=== PATIENT | female | born 1970 | race Caucasian/White ===

== ENCOUNTER 2016-11-21 13:29 | Emergency (ER) | payer SELFPAY ==
[~2016-11-21 13:29] MED LIST: HYDR25SU23 PR
== END 2016-11-21 13:43 | disposition left against medical advice (07) ==
LOC: E/R 13:29
DX: Z53.21 Procedure and treatment not carried out due to patient leaving prior to being seen by health care provider (principal)

== ENCOUNTER 2016-11-23 23:48 | Emergency (ER) | payer BC ==
[~2016-11-23] VITALS: Ht 162.6 cm; Wt 89.0 kg
[2016-11-23 23:53] VITALS: Ht 162.6 cm; Wt 89.0 kg
[2016-11-24 01:33] LABS: ADD SCAN DIFF NO
[2016-11-24 01:34] LABS: BASOPHILS % 0.4 % (0.0-2.0); EOSINOPHILS # 0.4 10^3/ul (0.0-0.5); EOSINOPHILS % 4.5 % (0.0-7.0); HEMOGLOBIN 10.2 g/dl (12.0-16.0); LYMPHOCYTES % 38.8 % (15.0-51.0); MEAN CORPUSCULAR HEMOGLOBIN 26.4 pg (29.0-33.0); MEAN CORPUSCULAR HGB CONC 31.9 g/dl (32.0-37.0); MEAN CORPUSCULAR VOLUME 82.9 fl (82.0-101.0); MEAN PLATELET VOLUME 9.6 fl (7.4-10.4); MONOCYTE # 0.6 10^3/ul (0.3-0.9); MONOCYTES % 7.4 % (0.0-11.0); NEUTROPHIL # 3.8 10^3/ul (1.6-7.5); NEUTROPHILS % 48.8 % (39.0-77.0); PLATELET COUNT 319 10^3/UL (140-415); RED BLOOD COUNT 3.86 10^6/ul (4.20-5.40); RED CELL DISTRIBUTION WIDTH 16.3 % (11.5-14.5); WHITE BLOOD COUNT 7.8 10^3/ul (4.8-10.8)
[2016-11-24 01:44] LABS: INR 0.89; PT RATIO 0.9
[2016-11-24 01:45] LABS: PARTIAL THROMBOPLASTIN TIME 26.8 Sec (25.0-35.0)
[2016-11-24 01:56] LABS: POTASSIUM 4.3 mmol/L (3.5-5.1)
[2016-11-24 01:59] LABS: CREATININE 0.61 mg/dl (0.44-1.00)
[2016-11-24 02:00] LABS: CALCIUM 8.7 mg/dl (8.4-10.2)
[2016-11-24 02:27] LABS: ADD UMIC YES; URINE BILIRUBIN (Dip) NEGATIVE (NEGATIVE); URINE BLOOD (Dip) 3+ (NEGATIVE); URINE COLOR RED (YELLOW); URINE GLUCOSE (Dip) NEGATIVE (NEGATIVE); URINE KETONES (Dip) TRACE (NEGATIVE); URINE LEUKOCYTE ESTERASE (Dip) NEGATIVE (NEGATIVE); URINE NITRITE (Dip) NEGATIVE (NEGATIVE); URINE TOTAL PROTEIN (Dip) 2+ (NEGATIVE); URINE UROBILINOGEN (Dip) 1.0 E.U./dL (0.1-1.0)
[2016-11-24 02:51] LABS: URINE RBCS >200 /HPF (0)
[2016-11-24 02:52] LABS: BACTERIA,URINE FEW; SQUAMOUS EPITHELIAL CELL,UR MODERATE
--- NOTE | 2016-11-24 03:10 | RADRPT ---
PROCEDURE: US Pelvis CLINICAL INDICATION: Vaginal bleeding. TECHNIQUE: Sonographic evaluation of the pelvis was performed utilizing both transabdominal and tr ansvaginal technique. Images were reviewed on the high-resolution PACS workstation. COMPARISON: 07/03/2016 FINDINGS: Uterus is 7.7 x 4.7 x 5.4 cm.. The endometrium is mildly thickened measuring 14 mm in diameter. Th ere is a 1.2 x 0.9 cm probable fibroid in the posterior body of the uterus. Cervical Nabothian cyst s are present. The right ovary measures 3 x 1.9 x 1 point a cm. The left ovary measures 3.6 x 2.9 x 3.4 cm. There is a 13 mm simple right ovarian cyst. There is an 8 mm right paraovarian simple cyst. There is a 3 cm simple cyst in the left ovary. Ovaries are otherwise unremarkable.. Color doppler vascular malvin w is demonstrated to both ovaries. There are no adnexal masses. There is no free fluid in the pel vis. IMPRESSION: 1. Nonspecific thickened endometrium. 2. Cervical Nabothian cyst. 3. Bilateral ovarian simple cysts, largest left ovary 3 cm in diameter. RPTAT: HMVK .Aren Leggett MD, Date Time Electronically viewed and signed by .Aren Leggett MD, on 11/24/2016 03:09 .K/
[2016-11-24] MEDS ORDERED: MEDR5TAB PO (03:47)
--- NOTE | 2016-11-24 03:52 | ERD ---
ER Documentation Chief Complaint Date/Time DATE: 11/24/16 TIME: 03:50 Chief Complaint vaginal bleeding since november 01, 2016 HPI 46-year-old female otherwise healthy comes in with vaginal bleeding since November 01 with her last menstrual period. Patient states that she was up to 6-7 pads a day. She was seen by her primary care doctor Dr. Sneed. She states that she will follow-up with her on Saturday to get a referral to see a gamemaster. She denies any dizziness, chest pain or shortness of breath. She states that she has had diffuse pelvic pain associated with this. ROS All systems reviewed and are negative except as per history of present illness. Medications Home Meds Active Scripts Medroxyprogesterone Acetate* (Provera*) 5 Mg Tablet, 5 MG PO DAILY for 10 Days, TAB Prov:АЛЕКСАНДР GASCA PA-C 11/24/16 Hydrocortisone Acetate (Anusol-Hc) 25 Mg Supp.rect, 1 SUPP [place] QHS Y for HEMORROID PAIN/ITCHING, #12 SUPP.RECT Prov:THELMA DESHPANDE DO 07/03/16 Allergies Allergies: Coded Allergies: No Known Drug Allergies (Verified Allergy, Mild, 07/03/16) PMhx/Soc History of Surgery: Yes (CHOLECYSTECTOMY; D AND C) Anesthesia Reaction: No Hx Neurological Disorder: No Hx Respiratory Disorders: No Hx Cardiac Disorders: No Hx Psychiatric Problems: No Hx Miscellaneous Medical Probl: Yes (GERD) Hx Alcohol Use: No Hx Substance Use: No Hx Tobacco Use: No Smoking Status: Never smoker Physical Exam Vitals Vital Signs Date Time Temp Pulse Resp B/P Pulse Ox O2 Delivery O2 Flow Rate FiO2 11/23/16 23:53 97.8 70 20 124/70 98 Physical Exam General: Well-developed, well-nourished. The patient appears in no acute distress. HEENT: Head is normocephalic, atraumatic. No scleral icterus. Neck: Supple. Nontender. Lungs: Clear to auscultation. Normal air movement. Heart: Regular rate and rhythm. S1 and S2 are normal. No murmurs, gallops, or rubs. Abdomen: Soft, nontender, nondistended. Bowel sounds are normoactive. : Cervix was visualized and closed, no masses. There is scant bleeding behind the cervix, small amount of clotting as well. Extremities: No clubbing or cyanosis. Normal pulses. Moving extremities x 4. No weakness. Neurologic: Alert and oriented 3. No focal deficits. Skin: Normal turgor. No rash or lesions. Result Diagram: 11/24/1612211/24/163 Results 24 hrs Laboratory Tests Test 11/24/16 01:23 White Blood Count 7.810^3/ul Red Blood Count 3.8610^6/ul Hemoglobin 10.2g/dl Hematocrit 32.0% Mean Corpuscular Volume 82.9fl Mean Corpuscular Hemoglobin 26.4pg Mean Corpuscular Hemoglobin Concent 31.9g/dl Red Cell Distribution Width 16.3% Platelet Count 28493^3/UL Mean Platelet Volume 9.6fl Neutrophils % 48.8% Lymphocytes % 38.8% Monocytes % 7.4% Eosinophils % 4.5% Basophils % 0.4% Nucleated Red Blood Cells % 0.0/100WBC Neutrophils # 3.810^3/ul Lymphocytes # 3.010^3/ul Monocytes # 0.610^3/ul Eosinophils # 0.410^3/ul Basophils # 0.010^3/ul Nucleated Red Blood Cells # 0.010^3/ul Prothrombin Time 12.0Sec Prothrombin Time Ratio 0.9 INR International Normalized Ratio 0.89 Activated Partial Thromboplast Time 26.8Sec Urine Color RED Urine Clarity OTHER Urine pH 7.5 Urine Specific [place] 1.015 Urine Ketones TRACE Urine Nitrite NEGATIVE Urine Bilirubin NEGATIVE Urine Urobilinogen 1.0 E.U./dL Urine Leukocyte Esterase NEGATIVE Urine Microscopic RBC >200/HPF Urine Microscopic WBC 0-2/HPF Urine Squamous Epithelial Cells MODERATE Urine Bacteria FEW Urine Hemoglobin 3+ Urine Glucose NEGATIVE% Urine Total Protein 2+ Sodium Level 142mmol/L Potassium Level 4.3mmol/L Chloride Level 103mmol/L Carbon Dioxide Level 28mmol/L Anion Gap 15 Blood Urea Nitrogen 11mg/dl Creatinine 0.61mg/dl Glucose Level 90mg/dl Calcium Level 8.7mg/dl PROCEDURE: US Pelvis CLINICAL INDICATION: Vaginal bleeding. TECHNIQUE: Sonographic evaluation of the pelvis was performed utilizing both transabdominal and transvaginal technique. Images were reviewed on the high- resolution PACS workstation. COMPARISON: 07/03/2016 FINDINGS: Uterus is 7.7 x 4.7 x 5.4 cm.. The endometrium is mildly thickened measuring 14 mm in diameter. There is a 1.2 x 0.9 cm probable fibroid in the posterior body of the uterus. Cervical Nabothian cysts are present. The right ovary measures 3 x 1.9 x 1 point a cm. The left ovary measures 3.6 x 2.9 x 3.4 cm. There is a 13 mm simple right ovarian cyst. There is an 8 mm right paraovarian simple cyst. There is a 3 cm simple cyst in the left ovary. Ovaries are otherwise unremarkable.. Color doppler vascular flow is demonstrated to both ovaries. There are no adnexal masses. There is no free fluid in the pelvis. IMPRESSION: 1. Nonspecific thickened endometrium. 2. Cervical Nabothian cyst. 3. Bilateral ovarian simple cysts, largest left ovary 3 cm in diameter. RPTAT: HMVK .Aren Leggett MD, MD Date Time Electronically viewed and signed by .Aren Leggett MD, MD on 11/24/2016 03:09 .K/ Procedures/MDM 46-year-old female comes in with dysfunctional uterine bleeding. Differentials include ovarian mass, torsion, endometriosis, endometrial cancer, and among others. Patient expressed her concern for malignancy, I advised patient that we will be putting her on a short course of hormone, and she needs to follow-up with [facility]. If they feel that they need further evaluation including biopsy, I will be up to the gamemaster. She is hemodynamically stable, there is no tachycardia, H&H is stable. This was all discussed at length with the patient. She is to follow-up with her PCP on Saturday for a referral. Departure Diagnosis: Primary Impression: Vaginal bleeding Condition: Good Patient Instructions: Dysfunctional Uterine Bleeding, Ovarian Cyst Referrals: ARACELI SNEED MD (PCP) [facility] [place] [id number] [facility] [address] [place] [address] OFFICE FAX CESAR KAY [address] [place] [address] [address]. HADLEY ANTHONY [address] [place] [address] [address] [facility] [address], [address], [place] [address] [address] [facility] [facility] [address] [facility], [place] [address] [facility] [address] [place] [address] [facility] [address] [address] [facility] [address] [place] [address] DR RAPP, YVAN [address] [facility]. [address], [place] [address] [address] MENDEZ, [facility] [address] [place] [address] Additional Instructions: Patient was advised to follow-up with [facility] within the next week. If they were to develop any worsening symptoms sooner, including heavy vaginal bleeding or pelvic pain, they are to return to the ER for further evaluation. АЛЕКСАНДР GASCA PA-C Nov 24, 2016 03:52
[2016-11-24] MEDS ORDERED: FER325 PO (03:53)
[2016-11-24 03:55] VITALS: PULSE 78; RESP 20; TEMP 98
== END 2016-11-24 03:56 | disposition home or self-care (01) ==
LOC: FTE 23:48
DX: N93.9 Abnormal uterine and vaginal bleeding, unspecified (principal); R10.2 Pelvic and perineal pain
CPT/HCPCS: 76830; 76856; 80048; 81001; 85025; 85610; 85730; Z7502; 81003

== ENCOUNTER 2019-02-20 12:13 | Day surgery (SDC) | payer BC ==
[~2019-02-20] VITALS: Ht 162.6 cm; Wt 84.4 kg
[~2019-02-20 12:13] MED LIST changes: +FER325 PO; +MEDR5TAB PO
[2019-02-20 13:26] VITALS: Ht 162.6 cm; Wt 84.4 kg
[2019-02-20] MEDS ORDERED: OMEP20CA16 PO (13:32)
[2019-02-20 14:56] VITALS: BP 119/68; PULSE 68; RESP 20
[2019-02-20] MEDS ORDERED: PROPOFOL 60 ML ONE (15:03)
--- NOTE | 2019-02-20 15:08 | PREAC ---
Date/Time of Note Date/Time of Note DATE: 02/20/19 TIME: 15:06 Anesthesia Eval and Record Evaluation Time Pre-Procedure Interview DATE: 02/20/19 TIME: 15:06 Age 48 Sex female NPO: 8 hrs Preoperative diagnosis H/O Diverticulitis, Heart Burn Planned procedure EGD, Colonoscopy Past Medical History Past Medical History: Includes GI: Obesity Surgery & Anesthesia Issues No known issue Meds Anticoagulation: No Beta Vitor within 24 hr: No Reason Beta Vitor not given: Pt. not on B-Vitor Reported Medications Omeprazole* (Omeprazole*) 20 Mg Capsule.dr, 20 MG PO DAILY, #30 CAP 02/20/19 Discontinued Scripts Ferrous Sulfate* (Ferrous Sulfate*) 325 Mg Tabec, 325 MG PO TID, #90 TAB Prov:АЛЕКСАНДР GASCA PA-C 11/24/16 Medroxyprogesterone Acetate* (Provera*) 5 Mg Tablet, 5 MG PO DAILY for 10 Days, TAB Prov:АЛЕКСАНДР GASCA PA-C 11/24/16 Hydrocortisone Acetate (Anusol-Hc) 25 Mg Supp.rect, 1 SUPP [place] QHS PRN for HEMORROID PAIN/ITCHING, #12 SUPP.RECT Prov:THELMA DESHPANDE DO 07/03/16 Meds reviewed: Yes Allergies Coded Allergies: No Known Drug Allergies (Verified Allergy, Mild, 07/03/16) Allergies Reviewed: Yes Labs/Studies Labs Reviewed: Reviewed by anesthesiologist test: Negative Pre-procedure Exam Last vitals Vital Signs Date Temp Pulse Resp B/P (MAP) Pulse Ox O2 O2 Flow FiO2 Time Delivery Rate 02/20/19 97.6 68 20 119/68 97 Room Air 14:56 (85) Airway: Adequate mouth opening Mallampati: Mallampati II Teeth: Normal Lung: Normal Heart: Normal ASA Physical Status ASA physical status: 2 Emergency: None Planned Anesthetic General/MAC: MAC Pre-operative Attestations Prior to commencing anesthesia and surgery, the patient was re-evaluated, there was verification of: *The patient's identity *The results of appropriate recent lab work and preoperative vital signs *The above evaluation not changing prior to induction *Anesthetic plan, risk benefits, alternative and complications discussed with patient/family; questions answered; patient/family understands, accepts and wishes to proceed. MARIANA HADDAD MD Feb 20, 2019 15:08
--- NOTE | 2019-02-20 15:30 | PAC ---
Date/Time of Note Date/Time of Note DATE: 02/20/19 TIME: 15:29 Post-Anesthesia Notes Post-Anesthesia Note Last documented vital signs Vital Signs Date Temp Pulse Resp B/P (MAP) Pulse Ox O2 O2 Flow FiO2 Time Delivery Rate 02/20/19 97.6 68 20 119/68 97 Room Air 14:56 (85) Activity: WNL Respiratory function: WNL Cardiovascular function: WNL Mental status: Baseline Pain reasonably controlled: Yes Hydration appropriate: Yes Nausea/Vomiting absent: Yes MARIANA HADDAD MD Feb 20, 2019 15:30
== END 2019-02-20 16:30 | disposition home or self-care (01) ==
LOC: GIL 12:13
PROVIDERS: ATTEND Internal Medicine Gastroenterology
DX: R19.4 Change in bowel habit (principal); K64.8 Other hemorrhoids; K57.30 Diverticulosis of large intestine without perforation or abscess without bleeding; K20.8 Other esophagitis; K29.70 Gastritis, unspecified, without bleeding
CPT/HCPCS: 43239; 45380; 84703; 88305; 88312; 88313; Z7610